=== PATIENT | male | born 1945 | race Caucasian/White ===

== ENCOUNTER → 2020-10-12 | Outpatient (CLI) | payer OTHER ==
[~2020-10-12] MED LIST: ZOFRAN4 MG PO
== END ==
LOC: ECHO 10:23
DX: I25.89 Other forms of chronic ischemic heart disease (principal); R93.1 Abnormal findings on diagnostic imaging of heart and coronary circulation; I08.2 Rheumatic disorders of both aortic and tricuspid valves
CPT/HCPCS: ECHO; 93306